=== PATIENT | male | born 1945 | race Caucasian/White ===

== ENCOUNTER 2019-10-04 10:50 | Outpatient (CLI) | payer MEDICARE, SELFPAY ==
[2019-10-04 11:38] LABS: Alanine Aminotransferase 21 U/L (4-50); Albumin Level 3.8 g/dL (3.5-5.1); Alkaline Phosphatase 52 U/L (38-126); Anion Gap 9.4 mmol/L (7-16); Aspartate Amino Transferase 26 U/L (17-59); Bilirubin,Total 1.7 mg/dL (0.2-1.3); Blood Urea Nitrogen 20 mg/dL (9-20); Calcium 8.8 mg/dL (8.4-10.2); Carbon Dioxide 27 mmol/L (22-30); Chloride 102 mmol/L (98-107); Cholesterol 148 mg/dL (0-200); Estimated Glomerular Filt Rate > 60; Glucose 89 mg/dL (75-110); HDL Direct 51 mg/dL; Potassium 4.4 mmol/L (3.4-5.0); Sodium 134 mmol/L (137-145); Triglycerides 41 mg/dL (<150)
[2019-10-04 11:49] LABS: LDL Cholesterol Direct 79 mg/dL
== END 2019-10-04 10:51 | disposition home or self-care (01) ==
PROVIDERS: PCP Internal Medicine; Visit Provider Internal Medicine
DX: E80.4 Gilbert syndrome (principal); E78.5 Hyperlipidemia, unspecified; Z12.5 Encounter for screening for malignant neoplasm of prostate; Z13.6 Encounter for screening for cardiovascular disorders
CPT/HCPCS: 36415; 80053; 80061; 84153; G0103

== ENCOUNTER 2021-01-15 11:03 | Outpatient (CLI) | payer MEDICARE, SELFPAY ==
[2021-01-15 12:28] LABS: Alanine Aminotransferase 26 U/L (4-50); Albumin Level 3.9 g/dL (3.5-5.1); Alkaline Phosphatase 51 U/L (38-126); Anion Gap 6 mmol/L (8-16); Aspartate Amino Transferase 30 U/L (17-59); Bilirubin,Total 1.4 mg/dL (0.2-1.3); Blood Urea Nitrogen 23 mg/dL (9-20); Calcium 9.1 mg/dL (8.4-10.2); Carbon Dioxide 28 mmol/L (22-30); Chloride 102 mmol/L (98-107); Cholesterol 162 mg/dL (0-200); Estimated Glomerular Filt Rate > 60; Glucose 95 mg/dL (65-110); HDL Direct 65 mg/dL; Potassium 4.8 mmol/L (3.4-5.0); Sodium 136 mmol/L (137-145); Triglycerides 44 mg/dL (<150)
[2021-01-15 12:39] LABS: LDL Cholesterol Direct 90 mg/dL
[2021-01-15 12:57] LABS: Prostate Specific Antigen 2.4 ng/mL (< OR = 4.0)
== END 2021-01-15 11:04 | disposition home or self-care (01) ==
LOC: ANHLAB 11:04
PROVIDERS: PCP Internal Medicine; Visit Provider Nurse Practitioner
DX: E78.5 Hyperlipidemia, unspecified (principal); Z12.5 Encounter for screening for malignant neoplasm of prostate
CPT/HCPCS: 36415; 80053; 80061; 84153; G0103

== ENCOUNTER 2021-03-13 00:23 | Day surgery (SDC) | payer MEDICARE, SELFPAY ==
[2021-02-24 14:52] VITALS: BMI 23.6
[2021-03-13 07:25] VITALS: BP 124/79; PULSE 72; RESP 18; TEMP 37; O2SAT 100
[2021-03-13 07:26] VITALS: BMI 22.4
[2021-03-13] MEDS: LACTATED RINGERS 1,000 ML 150 ML IV CONT (07:50)
--- NOTE | 2021-03-13 08:00 | WPDANESEPPF ---
Anes - Initial Pre Proc Eval Procedure: Operation Date: 03/13/21 08:30 Proposed Procedures p Screening Colonoscopy - Naveed Martines MD Date/Time: 03/13/21 08:00 Surgeon: Naveed Martines MD Pre Op Diagnosis: hx of colon polyps Patient Data Age: 75 Gender: M Height: 1.83 m Weight: 75.2 kg Last Vital Signs Temp 98.6 F 03/13/21 07:25 Pulse 72 03/13/21 07:25 Resp 18 03/13/21 07:25 BP 124/79 03/13/21 07:25 Pulse Ox 100 03/13/21 07:25 Allergies Allergy/AdvReac Type Severity Reaction Status Date / Time No Known Allergies Allergy Verified 02/24/21 14:53 Home Medications Medication Instructions Recorded Confirmed Type cetirizine 10 mg tablet 10 mg PO DAILY 08/24/19 02/24/21 History Adult Probiotic 1 tab-cap PO DAILY 02/24/21 02/24/21 History melatonin 5 mg PO HS 02/24/21 02/24/21 History omega-3 fatty acids [[place] 3 Fish 1,250 mg PO DAILY 02/24/21 02/24/21 History Oil] Patient hx anesthesia problems: none Family hx anesthesia problems: none Results Review: All pre-operative results and documents have been reviewed as part of the pre-operative evaluation. [facility] Family History Family History Mother Family history of malignant neoplasm Patient's mother is Family history unknown Father Family history of smoking Patient's father is Social History Social History Smoking status: Never smoker Alcohol intake: current Drinks per week: 2 Alcohol use details: BEERS Substance use: never Substance use type: does not use Living arrangements: with family Spiritual care concerns: No Anes - Eval Final PreProcedure Day of Procedure 03/13/21 08:00 Patient weight: normal Heart: regular rate and rhythm Lungs: clear to auscultation Airway: Mallampati scale class II Neurological: alert and oriented Last oral intake: >/= 8 hours ASA classification: II Emergent: no Anesthetic plan: proceed Anesthesia type and monitoring: general GIVS and standard monitoring Results Review: All pre-operative results and documents have been reviewed as part of the pre-operative evaluation. Informed Consent: The patient's anesthetic plan and its attendant risks and benefits were discussed with the patient/family/POA. Questions were solicited and answers provided to the satisfaction of the patient/family/POA.
--- NOTE | 2021-03-13 08:25 | WPDGICN ---
Assessment and Plan Assessment and plan (1) Hx of colonic polyps: Code(s): Z86.010 - Personal history of colonic polyps Status: Acute Assessment and Plan: Patient has a personal history of colon polyps. As well as a family history of colon cancer in a cousin. Plan is for surveillance colonoscopy at this time. Follow-up at 5 years has been suggested. GI Consult Note Consult date/time: 03/13/21 08:25 HPI: Moises Palomino is a 75 year old male Presents for screening colonoscopy. Patient's current weight appetite and bowel movements are normal. Patient denies abdominal pain. He has had no bleeding. Family history noncontributory. Patient does have a prior history of colon polyps. Most recent colonoscopy 5 years ago was unremarkable, by Dr Juárez. Patient has a family history of colon cancer in a cousin. He presents today for neoplasia screening. Review of Systems Review of Systems: All systems reviewed & are unremarkable except as noted in HPI and below PMFSH Family History Family History Mother Family history of malignant neoplasm Patient's mother is Family history unknown Father Family history of smoking Patient's father is Social History Social History Smoking status: Never smoker Alcohol intake: current Drinks per week: 2 Alcohol use details: BEERS Substance use: never Substance use type: does not use Living arrangements: with family Spiritual care concerns: No Meds Home Medications and Allergies Home Medications Medication Instructions Recorded Confirmed Type cetirizine 10 mg tablet 10 mg PO DAILY 08/24/19 02/24/21 History Adult Probiotic 1 tab-cap PO DAILY 02/24/21 02/24/21 History melatonin 5 mg PO HS 02/24/21 02/24/21 History omega-3 fatty acids [[place] 3 Fish 1,250 mg PO DAILY 02/24/21 02/24/21 History Oil] Allergies Allergy/AdvReac Type Severity Reaction Status Date / Time No Known Allergies Allergy Verified 02/24/21 14:53 Vital Signs Vital Signs - 24 hr 03/13/21 07:25 Temperature 98.6 F Pulse Rate 72 Respiratory Rate 18 Blood Pressure 124/79 Pulse Oximetry 100 Exam Narrative: Physical exam reveals patient be alert. Vital signs stable. HEENT exam is unremarkable. Patient is anicteric. Lungs are clear to auscultation and percussion. Heart is without murmur or extra sounds. Abdominal exam bowel sounds are present soft nontender with no organomegaly. Digital external rectal exam is normal.
[2021-03-13 08:59] VITALS: BP 96/57; PULSE 54; RESP 19; O2SAT 96
[2021-03-13 09:09] VITALS: BP 110/64; PULSE 50; RESP 16; O2SAT 100
[2021-03-13 09:19] VITALS: BP 118/68; PULSE 65; RESP 20; O2SAT 100
== END 2021-03-13 09:29 | disposition home or self-care (01) ==
PROVIDERS: PCP Internal Medicine; Visit Provider Internal Medicine Gastroenterology
PROC: 0DJD8ZZ Inspection of Lower Intestinal Tract, Via Natural or Artificial Opening Endoscopic (ICD-10-PCS; CPT 45378; principal; 2021-03-13 08:30)
DX: Z12.11 Encounter for screening for malignant neoplasm of colon (principal); K64.8 Other hemorrhoids; K57.30 Diverticulosis of large intestine without perforation or abscess without bleeding; Z86.010 Personal history of colon polyps
CPT/HCPCS: G0105; J2704; J7120

== ENCOUNTER 2021-05-23 07:40 | Outpatient (CLI) | payer MEDICARE, SELFPAY ==
--- NOTE | ~2021-05-23 | MR_ITS ---
EXAMINATION: MR shoulder LT wo/w con DATE: 05/23/2021 09:05 INDICATION: Left shoulder pain TECHNIQUE: Magnetic resonance imaging (MRI) of the left shoulder was performed without intravenous co ntrast. Sequences included axial PD-weighted FS FSE, coronal oblique PD-weighted FS FSE, coronal obli que T2-weighted FS FSE, sagittal PD-weighted FS FSE, and sagittal T1-weighted SE. COMPARISON: None. FINDINGS: Coracoacromial arch: The acromion undersurface is curved in morphology with small anterior hook (type III). There is thick ening of the coracoacromial ligament. Moderate acromioclavicular osteoarthritis. Rotator cuff: Moderate supraspinatus and mild infraspinatus tendinopathy. There is a shallow bursal sided tear exte nding 1 cm AP along the distal aspect of the conjoined portion of the supraspinatus and infraspinatus tendons. There is a deeper component at the anterior aspect of the tear measuring approximately 3 mm AP which extends through approximately two thirds of the tendon thickness. The teres minor tendon is normal. Mild subscapularis tendinopathy without discrete tear. Normal rotator cuff muscle bulk and s ignal. Biceps tendon, glenoid labrum and glenohumeral cartilage: Long head of the biceps tendon is normal. There is a superior, anterior to posterior tear of the lotus oid labrum (SLAP tear) at the 12:30-11:00 position of the superior glenoid labrum which appears to ex tend into the biceps anchor. There is also a tear at the 8:00-7:00 position of the posterior inferior labrum. Finally there is a tear at the 3:00-4:00 position of the anterior labrum. Partial-thickness cartilage loss with smooth chondral surface at the central and cephalad aspect of the glenoid. There is also mild nonuniform partial-thickness cartilage loss at the humeral head most prominent along the medial aspect of the humeral head. Tiny marginal osteophytes along the rim of the glenoid. Fluid: Minimal glenohumeral joint effusion with mild peripheral enhancing synovitis. There is proportional e xtension of a small amount fluid along the long head biceps tendon sheath. No loose osteochondral bod ies. Small amount of fluid and more prominent enhancing synovitis in the subacromial/subdeltoid bursa consistent with moderate bursitis. Bones/other: Bone alignment is normal. No fracture or pathologic marrow replacing process. Mild cystic change at t he greater tuberosity. No pathologically enlarged axillary lymphadenopathy or abnormally enhancing ma sses IMPRESSION: 1. Mild glenohumeral osteoarthritis with labral tears superiorly, posterior inferiorly and anteriorly . 2. Moderate supraspinatus and mild subscapularis and infraspinatus tendinopathy with small partial-th ickness bursal sided tear at the conjoined portion of the supraspinatus and infraspinatus tendons. 3. Moderate subacromial/subdeltoid bursitis. 4. Moderate acromioclavicular osteoarthritis. Reviewed, dictated and finalized at location A. IMPRESSION: 1. Mild glenohumeral osteoarthritis with labral tears superiorly, posterior inf eriorly and anteriorly. 2. Moderate supraspinatus and mild subscapularis and infraspinatus tendinopathy with small partial-thickness bursal sided tear at the conjoined portion of the supraspinatus and infraspinatus tendons. 3. Moderate subacromial/subdeltoid bursitis. 4. Moderate acromioclavicular osteoarthritis.
[2021-05-23 08:18] LABS: Estimated Glomerular Filt Rate > 60
== END 2021-05-23 07:41 | disposition home or self-care (01) ==
PROVIDERS: PCP Internal Medicine; Visit Provider Nurse Practitioner
DX: M19.012 Primary osteoarthritis, left shoulder (principal); M75.52 Bursitis of left shoulder
CPT/HCPCS: 73223; A9577

== ENCOUNTER 2021-06-23 00:25 | Day surgery (SDC) | payer MEDICARE, SELFPAY ==
[2021-06-13 09:32] VITALS: BMI 23.8
--- NOTE | 2021-06-13 09:45 | PC.NURSE ---
Report to the Outpatient Waiting Room, entrance under the green pavilion located off [facility], at time ____0900___ on date ___06/23/21____. OR Time: ___1100 . - You and your visitor will be asked a series of questions to screen for COVID 19 for your protection. - A mask is required within the hospital. Preoperative COVID Testing Requirements: No COVID Test needed if: (proof is required; if not received patient will have Rapid Test prior to entry) - Patient has received COVID Vaccine at least 14 days prior to procedure date or - Patient has positive COVID test result within last 90 days of surgery date. COVID Test needed if above criteria is not met If not COVID vaccinated a COVID test must be conducted within 72 hours of surgery and patient is asked to isolate self from time of testing until procedure. You will go to the [employer] [facility] for your COVID testing. The [employer] [facility] site is located at the corner of [address] [facility]. You will only be called if COVID results are positive and your surgeon may reschedule your elective surgery date. Patients may have clear liquids (water, carbonated beverages, clear teas, apple juice) until 3 hours prior to surgery (0800 AM)with a maximum of 20 ounces. - No food from midnight until time of surgery Take the following medications with a SIP of water the morning of surgery: ___NONE__ Medications to discontinue per ANESTHESIA -_PROBIOTIC, VITAMINS AND HERBAL SUPPLEMENTS, Date to take last dose__06/19/21__ Please no deodorant, or body powder the day of surgery. No jewelry (including any body piercings) or valuables the day of surgery, leave them at home. Please take a shower or bath the night before, or the morning of, surgery with an antibacterial soap. Wear comfortable, loose fitting clothing. - Jewelry must be removed prior to entering the operating room. Rings and piercings that are not removed may be cut off. - The hospital will not accept responsibility for valuables. - Please leave all valuables, including medications, at home the day of surgery. If you are going home after surgery, a licensed trash collector truck driver must drive you home. - NO public transportation without another adult. - We recommend that an adult stay with you for 24 hours following discharge. - We also recommend that you do not drive, make important decision, drink alcoholic beverages, or take any drugs that were not prescribed by your health care provider for at least 24 hours after your discharge time. One visitor will be allowed to accompany the patient into the hospital. Patients visitor will be instructed to remain with patient at all times or leave the building. We will allow the visitor to come back to the postoperative area when patient is ready. Follow any additional instructions given to you from your surgeon. Telephone instructions given to ____PT and asked if any additional questions and then verbalized understanding. Patient advised to call surgeon office or pre surgery nurse liaison [phone] if any additional questions.
[2021-06-23] VITALS (8 sets, daily range): BP systolic 127–136; BP diastolic 70–86; PULSE 67–94; RESP 14–18; TEMP 36.3–36.7; O2SAT 96–100
[2021-06-23] MEDS: ACETAMINOPHEN 500 MG TABLET 1000 MG PO (09:29)
[2021-06-23] MEDS: LACTATED RINGERS 1,000 ML 30 ML IV CONT ×2 (09:45→12:33)
[2021-06-23] MEDS: KETOROLAC 15 MG/ML VIAL (*BKC) IV PUSH (09:46)
--- NOTE | 2021-06-23 10:46 | WPDANESEPPF ---
Anes - Initial Pre Proc Eval Procedure: Operation Date: 06/23/21 11:00 Proposed Procedures p Left Rotator Cuff Repair with Distal Clavicle Excision - Ned Ramires MD Date/Time: 06/23/21 10:46 Surgeon: Ned Ramires MD Pre Op Diagnosis: Lt Rot Cuff, Lt AC Arthritis Patient Data Age: 75 Gender: M Height: 1.83 m Weight: 80.9 kg Last Vital Signs Temp 36.7 C 06/23/21 09:48 Pulse 67 06/23/21 09:48 Resp 16 06/23/21 09:48 BP 127/78 06/23/21 09:48 Pulse Ox 99 06/23/21 09:48 Allergies Allergy/AdvReac Type Severity Reaction Status Date / Time No Known Allergies Allergy Verified 06/23/21 09:25 Home Medications Medication Instructions Recorded Confirmed Type cetirizine 10 mg tablet 10 mg PO DAILY 08/24/19 06/13/21 History Adult Probiotic 1 tab-cap PO DAILY 02/24/21 06/13/21 History melatonin 5 mg PO HS 02/24/21 06/13/21 History omega-3 fatty acids [[place] 3 Fish 1,250 mg PO DAILY 02/24/21 06/13/21 History Oil] ascorbic acid (vitamin C) 500 mg 500 mg PO DAILY 04/02/21 06/13/21 History tablet magnesium 250 mg tablet 250 mg PO DAILY 04/02/21 06/13/21 History zinc sulfate 50 mg zinc (220 mg) 50 mg PO DAILY 04/02/21 06/13/21 History capsule Patient hx anesthesia problems: none Family hx anesthesia problems: none Results Review: All pre-operative results and documents have been reviewed as part of the pre-operative evaluation. [facility] Past Medical History Medical History (Updated 06/23/21 @ 10:46 by Mynor Babb MD) Allergies Arthritis Surgical History Surgical History History of hernia repair Family History Family History Mother Family history of malignant neoplasm Patient's mother is Family history unknown Cerebrovascular accident Father Family history of smoking Patient's father is Heart disease Alcoholism Social History Social History Smoking status: Never smoker Second hand tobacco smoke exposure: No Alcohol intake: current Drinks per week: 2 Alcohol use details: BEERS Substance use: never Substance use type: does not use Living arrangements: with family Gender identity (if verbalized by the patient): Male Spiritual care concerns: No Anes - Eval Final PreProcedure Day of Procedure 06/23/21 10:46 Patient weight: normal Heart: regular rate and rhythm Lungs: clear to auscultation Airway: Mallampati scale class II Neurological: alert and oriented Last oral intake: >/= 8 hours ASA classification: II Emergent: no Anesthetic plan: proceed Anesthesia type and monitoring: general ETT and standard monitoring Results Review: All pre-operative results and documents have been reviewed as part of the pre-operative evaluation. Informed Consent: The patient's anesthetic plan and its attendant risks and benefits were discussed with the patient/family/POA. Questions were solicited and answers provided to the satisfaction of the patient/family/POA.
--- NOTE | 2021-06-23 10:52 | WPDHPUPDATE1 ---
History and Physical Update Update Date/Time: 06/23/21 10:52 History and Physical has been reviewed, including an updated exam of the patient. There are NO changes in the patient's condition. Risks, benefits, and alternatives have been discussed and questions answered. Patient agrees to proceed with procedure.
[2021-06-23] MEDS: ceFAZolin 2 GM/D5W 50 ML 2 GM/50 ML BAG IVPB (11:08)
--- NOTE | 2021-06-23 12:02 | WPDANESPNB ---
Anes - Peripheral Nerve Block Date/Time: 06/23/21 12:02 I have discussed with the patient/family/POA the placement of a peripheral nerve block for post-operative pain management, including associated risks, benefits, complications, and side effects. Alternative methods of post-operative analgesia were detailed. Questions were solicited and answers provided to the satisfaction of the patient/family/POA. Time-Out: A pre-procedural Time-Out was completed immediately before starting the procedure and confirmed: Patient Identification, Site, Procedure, Patient Position and the Availability of Requisite Equipment. Clinical Indications: Acute post-operative pain management requested by the operative surgeon. Nerve Block Insertion Note Anes-nerve block: interscalene left Needle: 22 gauge, stimulating, insulated echogenic needle. Needle length: 50 mm Technique: nerve stimulation lost at (mA) (0.3) and ultrasound Technique comment: mid2mg [id number] Injectate: bupivacaine 0.5% with epi 5 mcg/ml (30ml no epi) and dexamethasone (mg) (4) Observations: tolerated well Complications: none Procedure start time:: 1100 Procedure end time:: 1105
--- NOTE | 2021-06-23 12:34 | P.OP_ITS ---
Procedure Note - Detailed Date of Procedure 06/23/21 Pre-op Diagnosis Lt Rot Cuff, Lt AC Arthritis Post-op Diagnosis Same Procedure Performed Left shoulder rotator cuff repair with distal clavicle excision Surgeon Ned Ramires MD Microbiological Lab Technician Nevin Araiza Anesthesia General and Regional Description of Procedure Patient was identified and proper site identified. In the preop holding area the anesthesia team performed a left upper extremity block. He was then taken to the operating room and transferred to the or table taking care to pad the torso and extremities. After general anesthetic induction and intubation, he was put in a semi beach chair position in the usual manner for a left shoulder procedure. His head was secured taking care to neither rotate nor extend the head and neck. The left upper extremity was prepped and draped free in usual sterile fashion. The subcutaneous tissue in the area of the incision was injected with 10 cc of 0.25% Marcaine and epinephrine solution. An oblique anterior incision was made extending from the AC joint distally in line with the fibers of the deltoid. Subcutaneous tissue was sharply dissected down to the deltoid fascia. The deltoid was dissected off the anterior portion of the acromion in the distal end of the clavicle. A 2 cm split was made at the junction between the anterior and middle thirds of the deltoid. Using the microsagittal saw the last 8 mm of clavicle removed. The saw was also used to perform the acromioplasty and then the undersurface of the acromion was rasped smooth. The thickened bursa was sharply debrided off of the rotator cuff allowing for complete inspection. There was an erosive tear with some retraction at the supraspinatus footprint. The degenerative tendon was excised and tendon edges freshened up. The tuberosity was repaired for repair. The tendon was repaired in a [id number] fashion with 2. Ethibond suture and then also 2. Ethibond was used to further secure the tendon to the greater tuberosity through a bony bridge. This gave a langley repair which was stable as the shoulder was taken through range of motion. The wound was irrigated with sterile NaCl solution. The deltoid was repaired back to the acromion with 2. Ethibond suture passed through bone and the remainder of the deltoid repair carried out with 2. Vicryl. Subcutaneous tissue was reapproximated with 2. Strata fix and then tissue adhesive used for the skin. Sterile dressing was applied. There were no known intraoperative complications, and perioperative antibiotics were administered. Estimated Blood Loss 20 Drains No Packing No Pathology None sent Complications No immediate complications Condition Stable Disposition PACU
== END 2021-06-23 14:30 | disposition home or self-care (01) ==
PROVIDERS: PCP Internal Medicine; Visit Provider Orthopaedic Surgery
PROC: (CPT 23420; principal; 2021-06-23 11:00)
DX: S46.012A Strain of muscle(s) and tendon(s) of the rotator cuff of left shoulder, initial encounter (principal); M19.012 Primary osteoarthritis, left shoulder; W18.39XA Other fall on same level, initial encounter; G89.18 Other acute postprocedural pain
CPT/HCPCS: 23410; 23120; 64415; A4565; A9270; J0171; J0461; J0690; J1100; J1885; J2250; J2270; J2405; J2704; J7120

== ENCOUNTER 2021-07-30 12:30 | Outpatient (RCR) | payer MEDICARE, SELFPAY ==
--- NOTE | 2021-06-25 11:43 | PTOPEVAL ---
PHYSICAL THERAPY INITIAL EVALUATION. Thank you for referring Moises Palomino to [facility].? The patient is scheduled to be seen for therapy? 2x/week for 8 weeks. Please review, sign, date and return this plan of care ANGELIQUE. I agree with and certify that the following plan of care is medically necessary. Referring Physician Date Attending Provider: Yves Bonner APN *PT Outpatient Evaluation Start: 06/25/21 Evaluation Information Diagnosis L rotator cuff repair Onset 06/23/21 Subjective Information Pt states in 2017 he was Query Text:As Reported By Patient/ cleaning out his gutters when Family the ladder fell out from under him and that is when the initial injury started. A few months ago he was working in his yard when he was pulling on a wire and the wire broke causing him to fall onto his L shoulder worsening the pain, and reinjuring the shoulder. He had a L rotator cuff repair on 06/23/21. Pain Assessment Left Shoulder(s) Reported Pain Level 3 Pain Description Aching Pain Frequency Acute Lowest Pain Intensity 3 Greatest Pain Intensity 6 Upper Extremity Range of Motion Left Shoulder Flexion - Passive 120 Shoulder Medial Rotation - Passive 45 Shoulder Lateral Rotation - Passive 45 Scapular/Shoulder Range of Motion ROM within limits of protocol Posture Posture Evaluation View Posterior Thoracic Spine Posture Flattened Lumbar Spine Posture Flattened Scapula Posture (L) Protracted,(R) Protracted Palpation Assessment Palpation tenderness noted at anterior shoulder. Bandages removed today, incision is clean, dry, and intact Manual Therapy Patient Position Supine Manual Therapy Treatment Passive Stretching Movement Findings - passive shoulder ER/IR with shoulder abducted to 15deg - to 45 deg in each direction - caregiver education for passive range of motion - educated and assessed ROM to 45 deg of ER/IR and shoulder scaption to 120 deg. PT Clinical Summary Moises Franklin presents to therapy today for his initial
[2021-07-23 12:38] VITALS: BP_SYST 143
--- NOTE | 2021-07-23 13:36 | PTOPEVAL ---
PHYSICAL THERAPY PROGRESS REPORT. Thank you for referring Moises Palomino to [facility].? The patient is scheduled to be seen for therapy? 2x/week for 4 weeks. Please review, sign, date and return this plan of care ANGELIQUE. I agree with and certify that the following plan of care is medically necessary. Referring Physician Date Attending Provider: Yves Bonner APN Evaluation Information Diagnosis L rotator cuff repair Onset 06/23/21 Subjective Information Pt states his shoulder is Query Text:As Reported By Patient/ doing really well. He states Family he is getting a lot more movement of the shoulder daily and his pain is manageable. Pain Assessment Self Report Pain Assessment Left Shoulder(s) Reported Pain Level 1 Greatest Pain Intensity 2 Upper Extremity Range of Motion General Upper Extremity Range of Motion WFL/Left,WFL/Right Gross Upper Extremity Range of Motion wrist flexion/ext, wrist Comments radial/unlar deviation/ forearm supination/pronation, elbow flexion/extension all WNL Scapular/ Shoulder Range of Motion Left Shoulder Flexion - Active 134 Shoulder Flexion - Passive 154 Shoulder Abduction - Active 134 Shoulder Abduction - Passive 143 Shoulder Medial Rotation - Passive 70 Shoulder Medial Rotation - Active T3 Shoulder Lateral Rotation - Passive 75 Shoulder Lateral Rotation - Active T10 Scapular/Shoulder Range of Motion R shoulder flexion 132 Comments R shoulder abduction 135 R sholder functional medial rotation/ lateral rotation: T4, T9 Upper Extremity Muscle Strength Testing Gross Upper Extremity Strength Comments lui shoulder flexion, IR, Ext rot 4+/5 R shoulder abduction 4+/5 L shoulder abduction 4/5 lui elbow flexion 5/5 lui elbow extension 4/5 Posture Posture Evaluation View Posterior Thoracic Spine Posture Flattened Lumbar Spine Posture Flattened Scapula Posture (L) Protracted,(R) Protracted, (L) Rotated Up,(R) Rotated Up Palpation Assessment Palpation none reported PT Clinical Summary Moises Franklin presents to therapy today for his re- evaluation following 9 visits of skilled therapy following a L TRC regain on 06/23/21. He reports excellent compliance with his HEP. Today he
--- NOTE | 2021-08-05 11:49 | PCPTNOTE ---
Attending Provider: Yves Bonner APN Patient:Moises Palomino Date of :1945 Patient called today, per Dr. Ramires, he is doing great and no longer requires skilled physical therapy services at this time. He is to be discharged. Patient?s initial visit was on 06/25/2021 10:30 and he had a total of 12 visits. The goals have been met. Thank you for referring this patient to [facility]. Please review, sign, date and return this discharge summary ANGELIQUE. I have been updated about the patient's current status and I agree with discharge from the above service at this time. Referring Physician Date
--- NOTE | 2021-08-05 11:55 | PCPTNOTE ---
Patient called & cancelled scheduled appointment this date.
== END 2021-08-06 11:49 | disposition home or self-care (01) ==
LOC: ANHPT 12:30
PROVIDERS: PCP Internal Medicine; Referring Provider Nurse Practitioner; Visit Provider Nurse Practitioner
DX: M25.512 Pain in left shoulder (principal)
CPT/HCPCS: 97014; 97110; 97112; 97140; 97161; 97530; G0283

== ENCOUNTER 2022-01-28 10:59 | Outpatient (CLI) | payer MEDICARE, SELFPAY ==
[2022-01-28 11:25] LABS: Alanine Aminotransferase 27 U/L (6-50); Albumin Level 3.9 g/dL (3.5-5.1); Alkaline Phosphatase 55 U/L (38-126); Anion Gap 6 mmol/L (8-16); Aspartate Amino Transferase 30 U/L (17-59); Bilirubin,Total 1.6 mg/dL (0.2-1.3); Blood Urea Nitrogen 23 mg/dL (9-20); Calcium 8.7 mg/dL (8.4-10.2); Carbon Dioxide 28 mmol/L (22-30); Chloride 102 mmol/L (98-107); Cholesterol 155 mg/dL (0-200); Estimated Glomerular Filt Rate > 60; Glucose 95 mg/dL (65-110); HDL Direct 53 mg/dL; Potassium 4.9 mmol/L (3.4-5.0); Sodium 136 mmol/L (137-145); Triglycerides 39 mg/dL (<150)
[2022-01-28 11:36] LABS: LDL Cholesterol Direct 79 mg/dL
== END 2022-01-28 11:00 | disposition home or self-care (01) ==
LOC: ANHLAB 11:01
PROVIDERS: PCP Internal Medicine; Visit Provider Nurse Practitioner
DX: E78.5 Hyperlipidemia, unspecified (principal)
CPT/HCPCS: 36415; 80053; 80061

== ENCOUNTER 2022-08-14 09:06 | Outpatient (CLI) | payer MEDICARE, SELFPAY ==
[2022-08-14 09:34] LABS: Alanine Aminotransferase 27 U/L (6-50); Alkaline Phosphatase 52 U/L (38-126); Anion Gap 3 mmol/L (8-16); Aspartate Amino Transferase 32 U/L (17-59); Bilirubin,Total 2.1 mg/dL (0.2-1.3); Blood Urea Nitrogen 21 mg/dL (9-20); Calcium 8.8 mg/dL (8.4-10.2); Carbon Dioxide 29 mmol/L (22-30); Chloride 102 mmol/L (98-107); Cholesterol 160 mg/dL (0-200); Estimated Glomerular Filt Rate > 60; Glucose 89 mg/dL (65-110); HDL Direct 60 mg/dL; Potassium 4.5 mmol/L (3.4-5.0); Sodium 134 mmol/L (137-145); Triglycerides 41 mg/dL (<150)
[2022-08-14 09:46] LABS: LDL Cholesterol Direct 83 mg/dL
[2022-08-14 10:05] LABS: Prostate Specific Antigen 1.7 ng/mL (< OR = 4.0)
== END 2022-08-14 09:07 | disposition home or self-care (01) ==
PROVIDERS: PCP Family Medicine; Visit Provider Nurse Practitioner Family
DX: E78.5 Hyperlipidemia, unspecified (principal); E80.4 Gilbert syndrome; Z12.5 Encounter for screening for malignant neoplasm of prostate
CPT/HCPCS: 36415; 80053; 80061; 84153; G0103

== ENCOUNTER 2023-06-28 14:19 | Outpatient (CLI) | payer MEDICARE, SELFPAY ==
--- NOTE | ~2023-06-28 | XR_ITS ---
XR chest 2V 06/28/2023 14:31 Indication: Cough Procedure: 2 view chest Comparison: No prior studies for comparison. Findings: There is right lower lobe airspace disease, compatible with pneumonia. Heart size normal. T here is pectus excavatum. No significant effusion. No pneumothorax. No acute osseous abnormality. Impression: 1: Right lower lobe airspace disease, compatible with pneumonia. Reviewed, dictated and finalized at location B. Impression: 1: Right lower lobe airspace disease, compatible with pneumonia.
== END 2023-06-28 14:20 | disposition home or self-care (01) ==
LOC: ANHIMG 14:22
PROVIDERS: PCP Nurse Practitioner Family; Visit Provider Nurse Practitioner Family
DX: R05.9 Cough, unspecified (principal); R91.8 Other nonspecific abnormal finding of lung field
CPT/HCPCS: 71046

== ENCOUNTER 2023-08-17 11:03 | Outpatient (CLI) | payer MEDICARE, SELFPAY ==
--- NOTE | ~2023-08-17 | XR_ITS ---
EXAM: XR foot LT min 3V DATE: 08/17/2023 11:17 HISTORY: S99.922A - Unspecified injury of left foot, initial encou... . COMPARISON: None available. FINDINGS: Normal mineralization. No fracture or dislocation. No lytic or blastic lesion. Moderate de generative change at the first MTP joint. Mild plantar enthesopathy. No erosion or periosteal change. Soft tissues within normal limits. IMPRESSION: No acute osseous finding in the left foot. Reviewed, dictated and finalized at location K.
== END 2023-08-17 11:04 | disposition home or self-care (01) ==
LOC: ANHIMG 11:04
PROVIDERS: PCP Nurse Practitioner Family; Visit Provider Nurse Practitioner Family
DX: S99.922A Unspecified injury of left foot, initial encounter (principal); X58.XXXA Exposure to other specified factors, initial encounter
CPT/HCPCS: 73630

== ENCOUNTER 2023-08-23 10:22 | Outpatient (CLI) | payer MEDICARE, SELFPAY ==
[2023-08-23 11:13] LABS: Hematocrit 43.9 % (42.0-52.0); Hemoglobin 14.7 g/dL (14.0-18.0); Mean Corpuscular HGB Conc 33.5 g/dl (32-36); Mean Corpuscular Hemoglobin 30.8 pg (26-34); Mean Corpuscular Volume 91.8 fl (80-100); Mean Platelet Volume 9.2 fl (7.4-10.4); Platelet Count Result 192 k/mm3 (150-375); Red Blood Count 4.78 M/mm3 (4.6-6.20); Red Cell Distribution Width 13.9 % (11.5-14.5); White Blood Count 4.7 K/mm3 (4.5-10.0)
[2023-08-23 11:25] LABS: Alanine Aminotransferase 25 U/L (6-50); Albumin Level 3.7 g/dL (3.5-5.1); Alkaline Phosphatase 70 U/L (38-126); Anion Gap 6 mmol/L (4-12); Aspartate Amino Transferase 32 U/L (17-59); Bilirubin,Total 1.8 mg/dL (0.2-1.3); Blood Urea Nitrogen 18 mg/dL (9-20); Carbon Dioxide 25 mmol/L (22-30); Chloride 104 mmol/L (98-107); Cholesterol 158 mg/dL (0-200); Estimated Glomerular Filt Rate > 60; Glucose 92 mg/dL (65-110); HDL Direct 58 mg/dL; Potassium 4.4 mmol/L (3.4-5.0); Sodium 135 mmol/L (137-145); Triglycerides 48 mg/dL (<150)
[2023-08-23 11:36] LABS: LDL Cholesterol Direct 97 mg/dL
== END 2023-08-23 10:23 | disposition home or self-care (01) ==
LOC: ANHLAB 10:25
PROVIDERS: PCP Nurse Practitioner Family; Visit Provider Nurse Practitioner Family
DX: E78.5 Hyperlipidemia, unspecified (principal); E80.4 Gilbert syndrome; H25.13 Age-related nuclear cataract, bilateral; N40.0 Benign prostatic hyperplasia without lower urinary tract symptoms; Z86.010 Personal history of colon polyps; Z13.228 Encounter for screening for other metabolic disorders; Z13.0 Encounter for screening for diseases of the blood and blood-forming organs and certain disorders involving the immune mechanism
CPT/HCPCS: 36415; 80053; 80061; 85027

== ENCOUNTER 2024-07-27 01:41 | Day surgery (SDC) | payer MEDICARE, SELFPAY ==
[2024-07-24 11:08] VITALS: BMI 23.1
--- OUTSIDE RECORDS SUMMARY | 2024-07-27 01:46 | XMS_ITS | Clinical Summary ---
Author Organization [facility] Address [address], [address] [address] Phone Care Team Providers Care Network Management Specialist Name Role Phone Jaskaran Mendoza MD Primary Care Provider [phone] Naveed Juárez DO Unavailable [phone] Medications polyethylene glycol (MIRALAX) Powder Mix the entire bottle with 64 oz of a clear liquid. Use as directed by the office for colonoscopy prep. 255 g 0 6 Active Immunizations Immunization Administration Dates Next Due Covid-19, Mrna, Lnp-s, Pf, 30 Mcg/0.3 Ml Dose (P fizer) 05/23/2020,05/02/2020 Family History Medical History Relation Name Comments Heart Disease Father Lung Cancer Mother Relation Name Status Comments Father Mother Social History Tobacco Use Types Packs/Day Years Used Date Smoking Tobacco: Never Alcohol Use Standard Drinks/Week Comments Yes 1 (1 standard drink = 0.6 oz pur e alcohol) Sex and Gender Information Value Date Recorded Sex Assigned at Not on file Legal Sex Male 10:13 PM CDT Gender Identity Not on file Sexual Orientation Not on file Plan of Treatment Health Maintenance Due Date Last Done Comments Hepatitis C Virus (HCV) Screening 1945 Pneumococcal Immunization (5 0+ years) (2 of 2 - PPSV23) 02/24/2016 02/23/2015 Zoster Immunization (2 of 3) 01/11/201901/2019, 12/19/2009 Respiratory Syncytial Virus (RSV) Immunization (Adult) (1 - 1-dose 75+ series) 07/21/2022 Influenza Immunization (#1) 11/07/202312/08, 02/07/2018, 02/24/2015 SARS-COV-2 Immunization ( season) 2023 01/31/2021, 05/23/2020, 05/02/2020 Pneumococcal Immunization Combined Discontinued 02/23/2015 Colonoscopy High Risk Discontinued 11/13/2015 Colonoscopy Discontinued 11/13/2015 Colorectal Cancer Screening Discontinued DTaP/Tdap/Td Immunization Discontinued 2015, 12/19/2002 TdaP Immunization Completed 03/01/2016, 12/19/2002 Cologuard Discontinued Hepatitis B Immunization Aged Out No longer eligible based on patient's age to complete this topic Immunochemical Fecal Occult Blood Discontinued Meningococcal Immunization (ACWY) Aged Out No longer eligible based on patient's age to complete this topic Rotavirus Immunization Aged Out No lo nger eligible based on patient's age to complete this topic Procedures Procedure Name Priority Date/Time Associated Diagnosis Comments COLONOSCOPY Routine 11/13/2015 from Last 3 Months or Most Recently Relevant to Health Maintenance Results * HM COLONOSCOPY (11/13/2015) Jaskaran Mendoza MD PROCEDURE/MINOR SURGICAL ORDER WINNIE Final Result from Last 3 Months or Most Recently Relevant to Health Maintenance Care Teams Network Management Specialist Relationship Specialty Start Date End Date Jaskaran Mendoza MD [address] [place] [address] PCP - General Internal Medicine 08/29/15 Naveed Juárez DO [address] [place] [address] Gastroenterology 11/15/15
--- OUTSIDE RECORDS SUMMARY | 2024-07-27 01:46 | XMS_ITS | Clinical Summary ---
Author Organization [facility] [employer] Address [address] [place] [address] Care Team Providers Care Signal Manager Name Role Phone Unavailable Primary Care Provider Unavailabl e Source Comments [facility] [employer],non-owned Affiliates and Associated Physician Practices is amultiple site organization consisting of ambulatory clinics and hospital sitesin [place], [place], [place] and [place]. This disclosure is being madepursuant to the Care Everywhere program and may not contain all information available regarding this patient. Last updated 17.[facility] [employer] Social History Tobacco Use Types Packs/Day Years Used Date Smoking Tobacco: Never Assessed Sex and Gender Information Value Date Recorded Sex Assigned at Not on file Legal Sex Male 1:10 PM COMMONWEALTH ATTORNEY Gender Identity Not on file Sexual Orientation Not on file Plan of Treatment Health Maintenance Due Date Last Done Comments HEPATITIS C SCREENING 07/17/1965 DTAP/TDAP/TD VACCINES (1 - Tdap) 07/21/1966 PNEUMOCOCCAL VACCINE 50+ (1 of 1 - PCV) 07/21/1997 ZOSTER VACCINE (1 of 2) 07/21/1997 Respiratory Syncytial Virus (RSV) Vaccine Pt: or over 60 yrs (1 - 1-dose 75+ series) 07/21/2022 COVID-19 VACCINE ( - 2023-2 5 season) 2023 DEPRESSION SCREENING 03/08/2024 MEDICARE AWV CALENDAR YEAR 2024 INFLUENZA VACCINE (Season Ended) 2024 HEPATITIS B VACCINE Aged Out No longe r eligible based on patient's age to complete this topic HIB VACCINE Aged Out No longer eligi ble based on patient's age to complete this topic HPV VACCINE Aged Out No longer eligi ble based on patient's age to complete this topic MENINGOCOCCAL (Group B) VACC INE SHARED DECISION-MAKING Aged Out No longer eligibl e based on patient's age to complete this topic MENINGOCOCCAL GROUPS A/C/Y/W VACCINE Aged Out No longer eligible b ased on patient's age to complete this topic Insurance [facility] MANAGED MEDICARE ADV
--- OUTSIDE RECORDS SUMMARY | 2024-07-27 01:46 | XMS_ITS | Encounter Summary ---
Author Organization [facility] Address [address] [place] [address] Care Team Providers Care Asset Protection Representative Name Role Phone Unavailable Primary Care Provider Unavailabl e Encounter Details Date Type Department Care Team (Late st Contact Info) Description 04/15/2023 Lab Requisition [facility] - DermPath Lab [address] [place] [address] Heather Mullen MD [address] [facility] 3 [place] [address] Social History Tobacco Use Types Packs/Day Years Used Date Smoking Tobacco: Never Assessed Sex and Gender Information Value Date Recorded Sex Assigned at Not on file Legal Sex Male 1:10 PM REELING OPERATOR Gender Identity Not on file Sexual Orientation Not on file documented as of this encounter Plan of Treatment Not on file documented as of this encounter Procedures Procedure Name Priority Date/Time Associated Diagnosis Comments DERMATOPATHOLOGY Routine 04/15/2023 12:5 5 PM REELING OPERATOR documented in this encounter Results * DERMATOPATHOLOGY (04/15/2023 12:55 PM REELING OPERATOR) Case Report Dermatopathology Report Case: [id number] Authorizing Provider: Heather Mullen MD Collected: 04/15/2023 12:55 PM Ordering Location: [facility] DermPath Lab Received: 04/16/2023 07:58 AM Pathologist: Joselyn Zhou MD Specimens: A) - Skin, left lower mucosal B) - Skin, left leg 4:47 PM REELING OPERATOR DERMATOPATHOLOGY LABORATORY Final Diagnosis Specimen A. SKIN, left lower mucosal: SUBMUCOSAL FIBROSIS AND VASCULAR DILATATION (L90.5) Specimen B. SKIN, left leg: SEBORRHEIC KERATOSIS (L82.1) 4:47 PM REELING OPERATOR DERMATOPATHOLOGY LABORATORY at 1647 REELING OPERATOR Clinical History A: Favor Mucocele B: r/o SCC 4 4:[address] [facility] DERMATOPATHOLOGY LABORATORY Gross Description Specimen A: Received is one formalin filled container labeled with the patient's name and designated left lower mucosal. The specimen consists of a shave biopsy measuring 5x4x1 mm. Jar 0. Specimen B: Received is one formalin filled container labeled with the patient's name and designated left leg. The specimen consists of a shave biopsy measuring 8x8x2 mm. Jar 0. 4 4:[address] [facility] DERMATOPATHOLOGY LABORATORY Microscopic Description Specimen A. SKIN, left lower mucosal: The mucosa is unremarkable. There is focal submucosal fibrosis. In the submucosa, there are dilated vascular spaces surrounded by widely spaced endothelial cells. Additional deeper sections were obtained and reviewed. Specimen B. SKIN, left leg: Sections show an acanthotic lesion composed of relatively uniform keratinocytes. There is hyperkeratosis and pseudo horn cysts formation. 4 4:[address] [facility] DERMATOPATHOLOGY LABORATORY Disclaimer An external and internal positive and negative controls are appropriate for the histochemical, immunohistochemical and immunofluorescence stain(s) in this case (if any), except where stated explicitly. The performance characteristics of the stain(s) cited in this report were developed and its performance characteristic determined by the Dermatopathology Laboratory at [facility], directed by Dr. Otis Khoury. These tests need not be, and therefore are not, approved by the [place] Food and Drug Administration. The tests are used for clinical purposes. Billing Codes Specimen Charges Stain Charges 45475 27803 1 1 4 4:[address] [facility] DERMATOPATHOLOGY LABORATORY Embedded Images 4 4:[address] [facility] DERMATOPATHOLOGY LABORATORY Pathology/Cytology TISSUE SPECIMEN FROM SKIN / Unknown 04/15/2023 12:55 PM REELING OPERATOR 04/16/2023 7:58 AM REELING OPERATOR Miscellaneous samples (specimen) TISSUE SPECIMEN FROM SKIN / Unknown 04/15/2023 12:55 PM REELING OPERATOR 04/16/2023 7:58 AM REELING OPERATOR us Heather Mullen MD LAB - PATHOLOGY/CYTOLOGY ORD ERABLES Final Result DERMATOPATHOLOGY LABORATORY [facility] - Department of Dermatology [facility] [address] [place] [address], [facility] [phone] documented in this encounter Visit Diagnoses Not on filedocumented in this encounter
[2024-07-27 07:08] VITALS: BP 132/74; PULSE 60; RESP 20; TEMP 36.8; O2SAT 99; BMI 23.9
[2024-07-27] MEDS: LACTATED RINGERS 1,000 ML 150 ML IV CONT (07:18)
--- NOTE | 2024-07-27 07:24 | WPDANESEPPF ---
Anes - Initial Pre Proc Eval Procedure: Operation Date: 07/27/24 08:00 Proposed Procedures p Esophagogastroduodenoscopy - Houston Grace MD Date/Time: 07/27/24 07:24 Surgeon: Houston Grace MD Pre Op Diagnosis: Gastro-esophageal reflux disease without esophagit Patient Data Age: 79 Gender: M Height: 1.83 m Weight: 80 kg Last Vital Signs Temp 36.8 C 07/27/24 07:08 Pulse 60 07/27/24 07:08 Resp 20 07/27/24 07:08 BP 132/74 07/27/24 07:08 Pulse Ox 99 07/27/24 07:08 O2 Del Method Room Air 07/27/24 07:08 Allergies Allergy/AdvReac Type Severity Reaction Status Date / Time hay fever Allergy Congested Uncoded 07/27/24 07:06 Home Medications ?Medication ?Instructions ?Recorded ?Confirmed ?Type cetirizine 10 mg tablet (Zyrtec) 10 mg PO DAILY 08/24/19 07/27/24 History Adult Probiotic 1 tab-cap PO DAILY 02/24/21 07/27/24 History melatonin 5 mg capsule 5 mg PO HS 02/24/21 07/27/24 History omega-3 fatty acids 1,250 mg PO DAILY 02/24/21 07/27/24 History ascorbic acid (vitamin C) 500 mg 500 mg PO DAILY 04/02/21 07/27/24 History tablet magnesium 250 mg tablet 250 mg PO DAILY 04/02/21 07/27/24 History zinc sulfate 50 mg zinc (220 mg) 50 mg PO DAILY 04/02/21 07/27/24 History capsule (Zinc-220) cholecalciferol (vitamin D3) 25 25 mcg PO DAILY 08/10/22 07/27/24 History mcg (1,000 unit) capsule [id number] 150 mcg-vit K1 1 tablet PO DAILY 08/10/22 07/27/24 History 30 mcg-lycop 300 mcg-lutein tablet (Centrum Minis Men 50 Plus) omeprazole 40 mg capsule,delayed 40 mg PO DAILY #90 caps 07/14/24 07/27/24 Rx release Patient hx anesthesia problems: none Family hx anesthesia problems: none Results Review: All pre-operative results and documents have been reviewed as part of the pre-operative evaluation. [facility] Past Medical History Medical History (Updated 07/26/24 @ 14:03 by Hollis Skaggs DO) GERD (gastroesophageal reflux disease) Arthritis Allergies Abnormal magnetic resonance imaging of shoulder Left shoulder pain Polyp of colon Surgical History Surgical History History of hernia repair Family History Family History Mother Family history of malignant neoplasm Patient's mother is Family history unknown Cerebrovascular accident Father Family history of smoking Patient's father is Heart disease Alcoholism Social History Social History (Updated 07/11/24 @ 07:06 by Ai Costa CMA) Smoking status: Never smoker Second hand tobacco smoke exposure: No Alcohol intake: never Drinks per week: 1 Alcohol use details: BEERS Substance use: never Substance use type: does not use Lack of Transportation: No Lack of Food: Never True Current Housing: I Have Housing Concerned About Future Housing: No Difficulty Paying Gas/Electric Bills: No Difficulty Paying for Meds: No Currently Unemployed: No Education: Bachelor's Degree Difficulty w/ Childcare or Family Care: No Living arrangements: with family Occupation/Education: retired Gender identity (if verbalized by the patient): Male Spiritual care concerns: No Agree to blood products: Yes Anes - Eval Final PreProcedure Day of Procedure 07/27/24 07:24 Patient weight: normal Heart: regular rate and rhythm Lungs: clear to auscultation and normal air movement Airway: Mallampati scale class II Neurological: alert and oriented Last oral intake: >/= 8 hours ASA classification: II Emergent: no Anesthetic plan: proceed Anesthesia type and monitoring: general GIVS and standard monitoring Results Review: All pre-operative results and documents have been reviewed as part of the pre-operative evaluation. Informed Consent: The patient's anesthetic plan and its attendant risks and benefits were discussed with the patient/family/POA. Questions were solicited and answers provided to the satisfaction of the patient/family/POA.
--- NOTE | 2024-07-27 08:09 | PM.IMHP ---
H&P: HPI History of Present Illness Date/Time: 07/27/24 08:09 Chief Complaint: GERD Narrative: since February 2024 the patient has been complaining of almost daily heartburn episodes, not associated with dysphagia. He is partially controlled with omeprazole 40 mg which he takes daily. He is concerned about a causing who of esophageal cancer recently. Review of Systems Review of Systems: All systems reviewed & are unremarkable except as noted in HPI and below PMFSH Past Medical History Medical History (Updated 07/26/24 @ 14:03 by Hollis Skaggs DO) GERD (gastroesophageal reflux disease) Arthritis Allergies Abnormal magnetic resonance imaging of shoulder Left shoulder pain Polyp of colon Surgical History Surgical History History of hernia repair Family History Family History Mother Family history of malignant neoplasm Patient's mother is Family history unknown Cerebrovascular accident Father Family history of smoking Patient's father is Heart disease Alcoholism Social History Social History (Updated 07/11/24 @ 07:06 by Ai Costa CMA) Smoking status: Never smoker Second hand tobacco smoke exposure: No Alcohol intake: never Drinks per week: 1 Alcohol use details: BEERS Substance use: never Substance use type: does not use Lack of Transportation: No Lack of Food: Never True Current Housing: I Have Housing Concerned About Future Housing: No Difficulty Paying Gas/Electric Bills: No Difficulty Paying for Meds: No Currently Unemployed: No Education: Bachelor's Degree Difficulty w/ Childcare or Family Care: No Living arrangements: with family Occupation/Education: retired Gender identity (if verbalized by the patient): Male Spiritual care concerns: No Agree to blood products: Yes Meds Home Medications and Allergies Home Medications ?Medication ?Instructions ?Recorded ?Confirmed ?Type cetirizine 10 mg tablet (Zyrtec) 10 mg PO DAILY 08/24/19 07/27/24 History Adult Probiotic 1 tab-cap PO DAILY 02/24/21 07/27/24 History melatonin 5 mg capsule 5 mg PO HS 02/24/21 07/27/24 History omega-3 fatty acids 1,250 mg PO DAILY 02/24/21 07/27/24 History ascorbic acid (vitamin C) 500 mg 500 mg PO DAILY 04/02/21 07/27/24 History tablet magnesium 250 mg tablet 250 mg PO DAILY 04/02/21 07/27/24 History zinc sulfate 50 mg zinc (220 mg) 50 mg PO DAILY 04/02/21 07/27/24 History capsule (Zinc-220) cholecalciferol (vitamin D3) 25 25 mcg PO DAILY 08/10/22 07/27/24 History mcg (1,000 unit) capsule qwxshfqt-exr-xluzj 150 mcg-vit K1 1 tablet PO DAILY 08/10/22 07/27/24 History 30 mcg-lycop 300 mcg-lutein tablet (Centrum Minis Men 50 Plus) omeprazole 40 mg capsule,delayed 40 mg PO DAILY #90 caps 07/14/24 07/27/24 Rx release Allergies Allergy/AdvReac Type Severity Reaction Status Date / Time hay fever Allergy Congested Uncoded 07/27/24 07:06 Vital Signs Vital Signs - 24 hr 07/27/24 07:08 Temperature 98.2 F Pulse Rate 60 Respiratory Rate 20 Blood Pressure 132/74 Pulse Oximetry 99 Oxygen Delivery Room Air Exam Const: General: cooperative and healthy appearing Resp: Effort & Inspection: normal respiratory effort and able to speak in complete sentences Auscultation: clear to auscultation bilaterally Cardio: Rate: regular rate Rhythm: regular rhythm GI: Inspection: normal to inspection GI Palp: No No hepatosplenomegaly present Auscultation: normal bowel sounds Rectal Exam: deferred Skin: General skin exam: normal color Psych: Appearance: grossly normal Mental Status: mental status grossly normal Assessment and Plan Assessment and plan (1) GERD (gastroesophageal reflux disease): Qualifiers: Esophagitis presence: without esophagitis Qualified Code(s): K21.9 - Gastro-esophageal reflux disease without esophagitis Code(s): K21.9 - Gastro-esophageal reflux disease without esophagitis Status: Acute Assessment and Plan: The patient is deemed a good candidate for the procedure. Consent signed. Will proceed.
[2024-07-27 08:30] VITALS: BP 101/62; PULSE 42; RESP 20; O2SAT 99
[2024-07-27 08:40] VITALS: BP 99/58; PULSE 40; RESP 20; O2SAT 99
[2024-07-27 09:01] VITALS: BP 98/60; PULSE 42; RESP 20; O2SAT 100
== END 2024-07-27 09:02 | disposition home or self-care (01) ==
PROVIDERS: PCP Nurse Practitioner Family; Visit Provider Internal Medicine Gastroenterology
PROC: 0DJ08ZZ Inspection of Upper Intestinal Tract, Via Natural or Artificial Opening Endoscopic (ICD-10-PCS; CPT 43239; principal; 2024-07-27 08:00)
DX: K22.70 Barrett's esophagus without dysplasia (principal); K21.9 Gastro-esophageal reflux disease without esophagitis; K44.9 Diaphragmatic hernia without obstruction or gangrene
CPT/HCPCS: 43239; 88305; J2003; J2704; J7120

== ENCOUNTER 2024-08-09 10:23 | Outpatient (CLI) | payer MEDICARE, SELFPAY ==
--- OUTSIDE RECORDS SUMMARY | 2024-08-09 10:30 | XMS_ITS | Clinical Summary ---
Author Organization [facility] Address [address], [address] [address] Phone Care Team Providers Care Occupational Therapy Teacher Name Role Phone Jaskaran Mendoza MD Primary Care Provider [phone] Naveed Juárez DO Unavailable [phone] Medications polyethylene glycol (MIRALAX) Powder Mix [...] Recently Relevant to Health Maintenance Care Teams Occupational Therapy Teacher Relationship Specialty Start Date End Date Jaskaran Mendoza MD [address] [place] [address] PCP - General Internal Medicine 08/29/15 Naveed Juárez DO [address] [place] [address] Gastroenterology 11/15/15
--- OUTSIDE RECORDS SUMMARY | 2024-08-09 10:30 | XMS_ITS | Encounter Summary ---
Author Organization [facility] Address [address] [place], [place] [address] [address] Care Team Providers Care Desizing Machine Offbearer Name Role Phone Unavailable Primary Care Provider Unavailabl e Encounter Details Date Type Department Care Team (Late st Contact Info) Description 04/15/[address] [facility] - DermPath Lab [address] [facility] [place] [address] Heather Mullen MD [address] [facility] 3 [place] [address] Social History Tobacco Use Types Packs/Day Years Used Date Smoking Tobacco: Never Assessed Sex and Gender Information Value Date Recorded Sex Assigned at Not on file Legal Sex Male 1:10 PM DROP WIRE HANGER Gender Identity Not on file Sexual Orientation Not on file documented as of this encounter Plan of Treatment Not on file documented as of this encounter Procedures Procedure Name Priority Date/Time Associated Diagnosis Comments DERMATOPATHOLOGY Routine 04/15/2023 12:5 5 PM DROP WIRE HANGER documented in this encounter Results * DERMATOPATHOLOGY (04/15/2023 12:55 PM DROP WIRE HANGER) Case Report Dermatopathology Report Case: [id number] Authorizing Provider: Heather Mullen MD Collected: 04/15/2023 12:55 PM Ordering Location: [facility] DermPath Lab Received: 04/16/2023 07:58 AM Pathologist: Joselyn Zhou MD Specimens: A) - Skin, left lower mucosal B) - Skin, left leg 4:47 PM DROP WIRE HANGER DERMATOPATHOLOGY LABORATORY Final Diagnosis Specimen A. SKIN, left lower mucosal: SUBMUCOSAL FIBROSIS AND VASCULAR DILATATION (L90.5) Specimen B. SKIN, left leg: SEBORRHEIC KERATOSIS (L82.1) 4:47 PM DROP WIRE HANGER DERMATOPATHOLOGY LABORATORY at 1647 DROP WIRE HANGER Clinical History A: Favor Mucocele B: r/o SCC 4 4:47 PM [facility] DERMATOPATHOLOGY LABORATORY Gross Description [...] 8x8x2 mm. Jar 0. 4 4:47 PM [facility] DERMATOPATHOLOGY LABORATORY Microscopic Description [...] pseudo horn cysts formation. 4 4:47 PM [facility] DERMATOPATHOLOGY LABORATORY Disclaimer An external and internal positive and negative controls are appropriate for the histochemical, immunohistochemical and immunofluorescence stain(s) in this case (if any), except where stated explicitly. The performance characteristics of the stain(s) cited in this report were developed and its performance characteristic determined by the Dermatopathology Laboratory at [facility], directed by Dr. Otis Khoury. These tests need not be, and therefore are not, approved by the [place] Food and Drug Administration. The tests are used for clinical purposes. Billing Codes Specimen Charges Stain Charges 43840 [id number] 1 1 4 4:47 PM [facility] DERMATOPATHOLOGY LABORATORY Embedded Images 4 4:47 PM [facility] DERMATOPATHOLOGY LABORATORY Pathology/Cytology TISSUE SPECIMEN FROM SKIN / Unknown 04/15/2023 12:55 PM DROP WIRE HANGER 04/16/2023 7:58 AM DROP WIRE HANGER Miscellaneous samples (specimen) TISSUE SPECIMEN FROM SKIN / Unknown 04/15/2023 12:55 PM DROP WIRE HANGER 04/16/2023 7:58 AM DROP WIRE HANGER us Heather Mullen MD LAB - PATHOLOGY/CYTOLOGY ORD ERABLES Final Result DERMATOPATHOLOGY LABORATORY [facility] - Department of Dermatology [facility] Specialized Medicine [facility] [facility], [address] Floor [address] [phone] documented in this encounter Visit Diagnoses Not on filedocumented in this encounter
--- OUTSIDE RECORDS SUMMARY | 2024-08-09 10:30 | XMS_ITS | Clinical Summary ---
Author Organization [facility] [employer] Address [address] [place] [address] Care Team Providers Care Hospital Unit Coordinator Name Role Phone Unavailable Primary Care Provider Unavailabl e Source Comments [facility] [employer],non-owned Affiliates and Associated Physician Practices is amultiple site organization consisting of ambulatory clinics and hospital sitesin [place] and [place]. This disclosure is being madepursuant to the Care Everywhere program and may not contain all information available regarding this patient. Last updated 17.[facility] [employer] Social History Tobacco Use Types Packs/Day Years Used Date Smoking Tobacco: Never Assessed Sex and Gender Information Value Date Recorded Sex Assigned at Not on file Legal Sex Male 1:10 PM WASHROOM OPERATOR Gender Identity Not on file Sexual [...] patient's age to complete this topic Insurance [facility] MANAGED MEDICARE ADV [facility] MANAGED MEDICARE ADV SELF PAY NO INSURANCE Member Subscriber Plan / Payer (Ef fective for All Dates) Name:Moises Palomino Member ID:Not on file Relation to Subscriber:Not on file Name:MOISES PALOMINO Subscriber ID:Not on file (Home) Address: [address] [place] [id number] Payer ID:Not on file Group ID:Not on file Type:Self Pay Address: [place], [place]
[2024-08-09 10:49] LABS: Hematocrit 42.3 % (42.0-52.0); Mean Corpuscular HGB Conc 33.1 g/dl (32-36); Mean Corpuscular Hemoglobin 31.1 pg (26-34); Mean Platelet Volume 9.2 fl (7.4-10.4); Platelet Count Result 177 k/mm3 (150-375); Red Cell Distribution Width 11.9 % (11.5-14.5); White Blood Count 4.6 K/mm3 (4.5-10.0)
[2024-08-09 10:56] LABS: Add Urine Microscopic? YES; Appearance Urine Cloudy (Clear); Bacteria Urine None Seen /hpf; Bilirubin Urine Negative (Negative); Blood Urine Negative (Negative); Color Urine Yellow (Yellow); Glucose Urine UA Negative (Negative); Ketones Urine Negative (Negative); Leukocyte Esterase Ur Negative LEU/UL (Negative); Nitrate Urine Negative (Negative); Non Pathogenic Casts 0-2; Protein Urine Negative (Negative); RBC Urine 0-2 /hpf (0-2); Specific Grav Ur 1.022 (1.001-1.035); Squamous Epithelial Cell Urine None Seen /hpf (Few); Urobilinogen Urine 0.2 mg/dL (<2.0); WBC Urine 0-5 /hpf (0-3)
[2024-08-09 11:09] LABS: Alanine Aminotransferase 23 U/L (6-50); Albumin Level 3.7 g/dL (3.5-5.1); Alkaline Phosphatase 59 U/L (38-126); Anion Gap 3 mmol/L (4-12); Aspartate Amino Transferase 32 U/L (17-59); Bilirubin,Total 1.8 mg/dL (0.2-1.3); Blood Urea Nitrogen 22 mg/dL (9-20); Calcium 8.9 mg/dL (8.4-10.2); Carbon Dioxide 28 mmol/L (22-30); Chloride 104 mmol/L (98-107); Cholesterol 152 mg/dL (0-200); Estimated Glomerular Filt Rate > 60; Glucose 97 mg/dL (65-110); HDL Direct 50 mg/dL; Potassium 4.4 mmol/L (3.4-5.0); Sodium 135 mmol/L (137-145); Total Protein 6.6 g/dL (6.3-8.2); Triglycerides 48 mg/dL (<150)
[2024-08-09 11:20] LABS: LDL Cholesterol Direct 77 mg/dL
[2024-08-09 11:39] LABS: Prostate Specific Antigen 1.9 ng/mL (< OR = 4.0)
== END 2024-08-09 10:24 | disposition home or self-care (01) ==
PROVIDERS: PCP Nurse Practitioner Family; Visit Provider Nurse Practitioner Family
DX: N40.0 Benign prostatic hyperplasia without lower urinary tract symptoms (principal); E78.5 Hyperlipidemia, unspecified; K21.9 Gastro-esophageal reflux disease without esophagitis; H25.13 Age-related nuclear cataract, bilateral; E80.4 Gilbert syndrome; Z86.0100 Personal history of colon polyps, unspecified; Z12.5 Encounter for screening for malignant neoplasm of prostate; Z80.0 Family history of malignant neoplasm of digestive organs
CPT/HCPCS: 36415; 80053; 80061; 81001; 84153; 85027; 87086; G0103